=== PATIENT | male | born 1985 | race Asian ===

== ENCOUNTER 2021-05-18 22:17 | Emergency (ER) | payer OTHER ==
[~2021-05-18] VITALS: Ht 175.3 cm; Wt 84.1 kg
[2021-05-19 00:38] VITALS: BP 124/72
[2021-05-19] MEDS ORDERED: KETOROLAC TROMETHAMINE 30 MG/ML VIAL IM ONE (01:45)
== END 2021-05-19 02:09 | disposition home or self-care (01) ==
LOC: EMS 22:59
DX: S29.012A Strain of muscle and tendon of back wall of thorax, initial encounter (principal); G58.8 Other specified mononeuropathies; M54.81 Occipital neuralgia; X50.9XXA Other and unspecified overexertion or strenuous movements or postures, initial encounter; Y93.B9 Activity, other involving muscle strengthening exercises; Y92.89 Other specified places as the place of occurrence of the external cause; Y99.8 Other external cause status
CPT/HCPCS: 96372; 99283; J1885